=== PATIENT | male | born 1985 | race Caucasian/White ===

== ENCOUNTER 2019-06-12 07:17 | Emergency (ER) | payer BC ==
--- NOTE | 2019-06-12 08:05 | UC ---
Throat Pain/Nasal Jeffry HPI - HPI Summary HPI Summary: The patient is a 33-year-old male with a five-day history of feeling feverish and with a documented temperature of 102.2 2 days ago. He has had a sore throat as well as nasal congestion and postnasal drip. He denies any chest pain or shortness of breath. He denies any nausea vomiting or diarrhea. - History of Current Complaint Chief Complaint: UCGeneralIllness Stated Complaint: FEVER SORE THROAT COUGH Time Seen by Provider: 06/12/19 07:58 Hx Obtained From: Patient Onset/Duration: Gradual Onset, Lasting Days Severity: Moderate Pain Intensity: 0 Pain Scale Used: 0-10 Numeric Cough: None Associated Signs & Symptoms: Positive: Hoarseness, Sinus Discomfort, Nasal Discharge, Fever Related History: Other (Noted In Comments) - nasal fracture as child with right deviated septum - Epiglottits Risk Factors Epiglottis Risk Factors: Negative - Allergies/Home Medications Allergies/Adverse Reactions: Allergies Allergy/AdvReac Type Severity Reaction Status Date / Time No Known Allergies Allergy Verified 06/12/19 07:31 Home Medications: Home Medications NK [No Home Medications Reported] 06/12/19 [History Confirmed 06/12/19] PMH/Surg Hx/FS Hx/Imm Hx Previously Healthy: Yes - Surgical History Surgical History: None - Family History Known Family History: Positive: Hypertension, Diabetes Negative: Cardiac Disease - Social History Alcohol Use: Occasionally Substance Use Type: None Smoking Status (MU): Never Smoked Tobacco Review of Systems All Other Systems Reviewed And Are Negative: Yes Constitutional: Positive: Fever, Fatigue Skin: Positive: Negative Eyes: Positive: Negative ENT: Positive: Sore Throat, Nasal Discharge, Sinus Congestion Respiratory: Positive: Cough - rare Cardiovascular: Positive: Negative Gastrointestinal: Positive: Negative Genitourinary: Positive: Negative Motor: Positive: Negative Neurovascular: Positive: Negative Musculoskeletal: Positive: Negative Neurological: Positive: Negative Psychological: Positive: Negative Physical Exam Vital Signs: Initial Vital Signs Temp 99.3 F 06/12/19 07:28 Pulse 88 06/12/19 07:28 Resp 16 06/12/19 07:28 BP 134/94 06/12/19 07:28 Pulse Ox 99 06/12/19 07:28 Diagnostics - Laboratory Lab Results: strep -, influenza - Throat Pain/Nasal Course/Dx - Differential Dx/Diagnosis Provider Diagnosis: Elevated BP without diagnosis of hypertension, Upper respiratory infection Discharge ED - Sign-Out/Discharge Documenting (check all that apply): Patient Departure All imaging exams completed and their final reports reviewed: No Studies - Discharge Plan Condition: Stable Disposition: HOME Patient Education Materials: Upper Respiratory Infection (ED) Forms: *Work Release Referrals: Tom Goodwin MD [Primary Care Provider] - 5 Days (if not better) Additional Instructions: strep and flu test negative rest/fluids/tylenol or advil saline nasal spray 2 sprays twice daily - Billing Disposition and Condition Condition: STABLE Disposition: Home
[2019-06-12 08:26] LABS: Influenza A Molecular NEGATIVE (Negative); Influenza B Molecular NEGATIVE (Negative)
== END 2019-06-12 08:49 | disposition home or self-care (01) ==
LOC: UCEAST 07:17
DX: J06.9 Acute upper respiratory infection, unspecified (principal); R03.0 Elevated blood-pressure reading, without diagnosis of hypertension
CPT/HCPCS: 87651; 99201; G0463